=== PATIENT | female | born 1995 | race Caucasian/White ===

== ENCOUNTER 2016-09-06 14:00 | Emergency (ER) | payer MEDICAID ==
[2016-09-06] MEDS ORDERED: Sodium Chloride 0.9% 10 ML Syringe FLUSH PRN (14:12)
[2016-09-06] MEDS ORDERED: Ondansetron 4 MG/2 ML SDV IVPUSH ONE (14:17)
[2016-09-06] MEDS ORDERED: Morphine 4 MG/ML Syringe IVPUSH ONE ×2 (14:17→15:38)
[2016-09-06] MEDS ORDERED: Sodium Chloride 0.9% 1,000 ML IV ONE (14:17)
[2016-09-06] MEDS ORDERED: Ketorolac 30 MG/ML SDV IVPUSH ONE (14:18)
[2016-09-06] MEDS ORDERED: Iopamidol 612 MG/ML 100 ML Bottle IVPUSH ONE (14:21)
[2016-09-06] MEDS ORDERED: Sodium Chloride 0.9% 100 ML IV ONE (14:21)
[2016-09-06 15:09] LABS: CHLORIDE,CL 107 mmol/L (98-107); SODIUM,NA 142 mmol/L (136-145)
[2016-09-06 15:42] VITALS: BP 123/87
[2016-09-06] MEDS ORDERED: Ampicillin/Sulbactam Na 3 GM in Sodium Chloride 0.9% 100 ML IV ONE (16:44)
[2016-09-06] MEDS ORDERED: HYDROmorphone 1 MG/ML Syringe IVPUSH ONE (16:56)
--- NOTE | 2016-09-09 08:23 | ER ---
Date of Service: 09/06/2016 SUBJECTIVE: Joy presents to the emergency room with complaints of periumbilical abdominal pain that started approximately 4 days ago. The patient states that the discomfort has been gradual in onset. She states that she has also been experiencing some fever and chills. Denies any nausea, vomiting, or diarrhea. She states that she does have a history of ovarian cysts in the past. She states that she is currently taking on Depo-Provera injections. She states that she is currently not sexually active and denies any vaginal discharge or bleeding. PAST MEDICAL HISTORY: Fibromyalgia. MEDICATIONS: 1. Lyrica. 2. Lopressor. 3. Depo-Provera. ALLERGIES: NKDA. REVIEW OF SYSTEMS: General: Positive for fever and chills. HEENT: No sore throat, rhinorrhea, or congestion. Respiratory: No shortness of breath. Cardiac: Denies any substernal chest pain. No jaw, arm, neck, or back pain. Gastrointestinal: Please see history of present illness. Genitourinary: Denies any dysuria. No melena, hematochezia, or hematemesis. Neurologic: No fainting, blackouts, or lightheadedness. Musculoskeletal: No myalgias or arthralgias. PHYSICAL EXAMINATION: General: This is a 20-year-old female patient, in no acute distress. Vital Signs: Blood pressure is 125/87, respiratory rate is 20, and temperature is 36.7. Skin: Warm, pink, and dry. HEENT: Mouth, oral mucosa is moist. Lungs: Clear to auscultation. Heart: Regular rate and rhythm. Abdomen: Soft, diffusely tender but localizes around periumbilically. There are no masses noted. There is no hepatosplenomegaly noted. She does have guarding present as well. Genitourinary: Deferred. Rectal: Deferred. Extremities: Without edema. Neurologic: She is alert and oriented and answers all questions appropriately. The patient's speech is fluent. Her gait is within normal limits. LABORATORY DATA: WBCs 16.2, hemoglobin is 10.4, and platelets are 278. She had 82% neutrophils, 3% bands, and did have a slight toxic granulation. Coags; PT is 11.6, INR is 1.0. Chemistry; sodium 142, potassium is 3.8, chloride is 107, bicarb is 25, BUN is 10, creatinine 0.8. GFR is greater than 60. Glucose is 80, lactic acid is 1.1, calcium is 8.5, corrected calcium is 9.54. Total bilirubin is 0.6, AST is 20, ALT is 25, alkaline phosphatase is 127, C-reactive protein is 33.9, total protein is 6.2, albumin is 2.7. Urinalysis reveals specific gravity of less than 1.005. This is after approximately a liter of normal saline, pH was 6.0, negative for protein, glucose, ketones, occult blood, nitrites, and leukocyte esterase. CT scan of the patient's abdomen and pelvis with IV contrast was obtained. She did have evidence of free fluid in her abdomen and pelvis of unknown etiology. Her appendix was within normal limits. She had no evidence of diverticulitis or other obvious inflammatory changes. EMERGENCY ROOM COURSE: IV access was established. She was given a liter of normal saline. Her pain was treated initially with morphine and Toradol and then eventually with Dilaudid. She was also given Zofran 4 mg IV for nausea and vomiting. Blood cultures x2 were obtained and were pending. She was also given Unasyn 3 g IV and remained stable in my care in the emergency room. ASSESSMENT: Abdominal pain secondary to free fluid in abdomen of unknown etiology. PLAN: I did contact [facility] regarding this patient. She will be transferred to be evaluated by General Surgery. I spoke with Dr. Goodwin who accepts the patient in transfer. The patient will be transported by [facility] ground ambulance. All questions were answered. MWK: 09/06/2016 18:25:00 MODL: 09/06/2016 18:47:47 /[id number]
== END 2016-09-06 17:25 | disposition short-term general hospital (02) ==
LOC: VM.ED 14:00
DX: R18.8 Other ascites (principal)
CPT/HCPCS: 36415; 74177; 80053; 81001; 81025; 83605; 85025; 85610; 86140; 87040; 87077; 87186; 96365; 96366; 96367; 96375; 96376; 99285; J0295; J1170; J1885; J2270; J2405; J7030; J7050; Q9967; 87147

== ENCOUNTER 2016-09-19 12:49 | Inpatient (IN) | payer MEDICAID ==
[2016-09-19] MEDS ORDERED: OXYCODONE 10 MG PO PRN (13:12)
[2016-09-19] MEDS ORDERED: Ondansetron 4 MG Tab.DIS PO PRN (13:56)
[2016-09-19] MEDS ORDERED: Ondansetron 4 MG/2 ML SDV IV PRN (13:59)
[2016-09-19] MEDS ORDERED: oxyCODONE 5 MG Tab PO PRN (13:59)
[2016-09-19] MEDS ORDERED: Acetaminophen/Diphenhydramine 500-25 MG Tab PO PRN (13:59)
[2016-09-19] MEDS ORDERED: Heparin Sodium 100 Units/ML 3 ML Syringe IVPUSH SCH (14:00)
[2016-09-19] MEDS ORDERED: SODIUM CHLORIDE IV SCH (14:00)
--- NOTE | 2016-09-19 14:11 | PCM.HP ---
H&P History of Present Illness - General Date of Service: 09/19/16 Admit Problem/Dx: Admission Diagnosis/Problem Admission Diagnosis/Problem Laminectomy Source of Information: Patient, Old Records, Provider - History of Present Illness Initial Comments - Free Text/Narative: History of present illness. Patient was a mid to swing bed today in order to complete total of at least six weeks IV vancomycin high-dose for injury of large spinal abscess status post laminectomy. Approximately two weeks ago on 519 she presented with fever and abdominal and back pain. She is found of leukocytosis. CT concerning for appendicitis. Went to the OR where laparoscopy showed normal appendix. She had appendectomy performed. Her blood cultures grew staph aureus, MRSA. Because of this they did further imaging for source of septicemia. BASIL was negative for any vegetations or endocarditis. MRI showed large spinal abscess from approximately T8 to L3 which subsequently was drained. She has wound VAC in place still having mild to moderate help. Mild pain here. 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 Exact etiology of blood poisoning is not clear. She denies doing IV drug use but the people she was around apparently had been doing this to women against her will. She does admit to smoking methamphetamine for about four months earlier this year. Known chronic marijuana use. Denies alcohol or cigarette use. They recommended inpatient chemical dependency eval in [place] which she refused. Family history positive for chemical dependency and chronic pain syndrome in mother. Social history otherwise patient is not . 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 She returned here to [place] after she broke up with her boyfriend in [place]. Review of systems: Denies headache denies neck pain denies chest pain denies shortness of breath she does describe occasional palpitations. She notes and pickers-type nodules to her skin denies any change in way-type lesions or raw spots. Denies any diarrhea dysuria or vomiting. She is amenorrheic secondary to Depo-Provera. States she's due for her next shot. She is afebrile and her vital signs are normal. Alert oriented occasional twinges of discomfort from her back pain. She has very large open wound with wound VAC here for approximately T8 to L3 area. Surrounding skin is healthy without erythema swelling or drainage. Extremities warm well perfused with normal strength and legs. Heart and lungs clear to auscultation. Assessment and plan. Spinal abscess. Appears to be secondary to methamphetamine use, either IV drug use or smoking this and getting infected skin lesions from picking. We will continue six weeks every 8 hours vancomycin here with monitoring per pharmacy. I think she'll have to stay inpatient for this given frequency and history of substance abuse. She is adamant she won't use meth in the future but discussed her his risk for recurrence. We will get social work consult regarding possible outpatient CD follow-up. We are no work on weaning oxycodone over the next three weeks. Per [place] pain consult guidelines. She is due again for Depo-Provera shot her urine hCG was negative in the hospital. - Related Data Allergies/Adverse Reactions: Allergies Allergy/AdvReac Type Severity Reaction Status Date / Time No Known Drug Allergies Allergy Other Verified 09/06/16 15:29 Home Medications: Home Meds medroxyPROGESTERone Acetate [Depo-Provera] 150 mg IM Q3M 12/31/13 [History] 0.9 % Sodium Chloride [Normal Saline Flush] 10 ml IV Q8H 09/19/16 [History] Acetaminophen [Acetaminophen Extra Strength] 1,000 mg PO TID 09/19/16 [History] Baclofen 10 mg PO QID 09/19/16 [History] Heparin Sodium,Porcine/PF [Heparin 300 Unit/3 ml (100/ml)] 3 ml IV Q8H 09/19/16 [History] Metoprolol Tartrate 25 mg PO BID 09/19/16 [History] Ondansetron [Zofran ODT] 4 mg PO Q4H PRN 09/19/16 [History] Pregabalin [Lyrica] 100 mg PO Q8H 09/19/16 [History] Vancomycin/0.9 % Sod Chloride [Vanco 1.25 gm/250 ml-0.9% NaCl] 1.25 gm IV Q8H [History] oxyCODONE HCl [Oxycodone HCl] 10 mg PO Q4H PRN 09/19/16 [History] Past Medical History Other Genitourinary History: bladder and kidney infections Musculoskeletal History: Reports: Fibromyalgia Other Musculoskeletal History: R foot surgery Psychiatric History: Reports: Anxiety, Depression Social & Family History - Tobacco Use Smoking Status *Q: Current Every Day Smoker Years of Tobacco use: 2 Packs/Tins Daily: 0.5 - Alcohol Use Days Per Week of Alcohol Use: 0 - Recreational Drug Use Recreational Drug Use: No H&P Review of Systems - Review of Systems: Review Of Systems: See Below Exam - Exam Exam: See Below - Vital Signs Vital Signs: Last Vital Signs Temp 36.7 C 09/19/16 13:34 Pulse 92 09/19/16 13:34 Resp 22 H 09/19/16 13:34 BP 129/77 09/19/16 13:34 Pulse Ox 100 09/19/16 13:34 Weight: 67.585 kg *Q Meaningful Use (ADM) - VTE *Q VTE Criteria *Q: - Stroke *Q Stroke Criteria *Q: - AMI *Q AMI Criteria *Q: Problem List Initiated/Reviewed/Updated: Yes Orders Last 24hrs: Active Orders 24 hr Category Date Time Status Patient Status [ADT] Routine ADT 09/19/16 12:49 Active Patient Status [ADT] Routine ADT 09/19/16 13:59 Ordered Ambulate [RC] PER UNIT ROUTINE Care 09/19/16 14:00 Ordered Brace [Immobilizer] [RC] ,20 Care 09/19/16 12:48 Active Central Line Assessment [RC] Care 09/19/16 12:47 Active May Shower [RC] .PRN Care 09/19/16 12:51 Active Oxygen Therapy [RC] PRN Care 09/19/16 13:59 Ordered Up With Assistance [RC] ASDIRECTED Care 09/19/16 13:59 Ordered VTE/DVT Education [RC] PER UNIT ROUTINE Care 09/19/16 13:59 Ordered Vital Signs [RC] Q4H Care 09/19/16 13:59 Ordered Consult to Dietary [Consult to Social Research Assistant] [CONS] Cons 09/19/16 13:35 Active Routine Consult to Mold Yard Crane Operator [CONS] Routine Cons 09/19/16 13:59 Ordered PT Evaluation and Treatment [CONS] Routine Cons 09/19/16 13:59 Ordered Regular Diet [DIET] Diet 09/19/16 Dinner Ordered C-REACTIVE PROTEIN [CHEM] Q7D Lab 09/20/16 07:00 Ordered C-REACTIVE PROTEIN [CHEM] Q7D Lab 09/27/16 07:00 Ordered C-REACTIVE PROTEIN [CHEM] Q7D Lab 10/04/16 07:00 Ordered C-REACTIVE PROTEIN [CHEM] Q7D Lab 10/11/16 07:00 Ordered C-REACTIVE PROTEIN [CHEM] Q7D Lab 10/18/16 07:00 Ordered CBC WITH AUTO DIFF [HEME] Q7D Lab 09/20/16 07:00 Ordered CBC WITH AUTO DIFF [HEME] Q7D Lab 09/27/16 07:00 Ordered CBC WITH AUTO DIFF [HEME] Q7D Lab 10/04/16 07:00 Ordered CBC WITH AUTO DIFF [HEME] Q7D Lab 10/11/16 07:00 Ordered CBC WITH AUTO DIFF [HEME] Q7D Lab 10/18/16 07:00 Ordered CBC WITH AUTO DIFF [HEME] TUFR@07 Lab 09/24/16 07:00 Ordered CREATININE W/GFR [CHEM] TUFR@0700 Lab 09/20/16 07:00 Ordered CREATININE W/GFR [CHEM] TUFR@0700 Lab 09/24/16 07:00 Ordered CREATININE W/GFR [CHEM] TUFR@0700 Lab 09/27/16 07:00 Ordered CREATININE W/GFR [CHEM] TUFR@0700 Lab 10/01/16 07:00 Ordered CREATININE W/GFR [CHEM] TUFR@0700 Lab 10/04/16 07:00 Ordered CREATININE W/GFR [CHEM] TUFR@0700 Lab 10/08/16 07:00 Ordered CREATININE W/GFR [CHEM] TUFR@0700 Lab 10/11/16 07:00 Ordered CREATININE W/GFR [CHEM] TUFR@0700 Lab 10/15/16 07:00 Ordered CREATININE W/GFR [CHEM] TUFR@0700 Lab 10/18/16 07:00 Ordered VANCOMYCIN TROUGH [CHEM] TUFR@0700 Lab 09/20/16 07:00 Ordered VANCOMYCIN TROUGH [CHEM] TUFR@0700 Lab 09/24/16 07:00 Ordered VANCOMYCIN TROUGH [CHEM] TUFR@0700 Lab 09/27/16 07:00 Ordered VANCOMYCIN TROUGH [CHEM] TUFR@0700 Lab 10/01/16 07:00 Ordered VANCOMYCIN TROUGH [CHEM] TUFR@0700 Lab 10/04/16 07:00 Ordered VANCOMYCIN TROUGH [CHEM] TUFR@0700 Lab 10/08/16 07:00 Ordered VANCOMYCIN TROUGH [CHEM] TUFR@0700 Lab 10/11/16 07:00 Ordered VANCOMYCIN TROUGH [CHEM] FR@0700 Lab 10/15/16 07:00 Ordered VANCOMYCIN TROUGH [CHEM] FR@0700 Lab 10/18/16 07:00 Ordered Acetaminophen [Tylenol Extra Strength] Med 09/19/16 20:00 Active 1,000 mg PO TID Acetaminophen [Tylenol] Med 09/19/16 13:59 Ordered 650 mg PO Q4H PRN Baclofen (Own Med) Med 09/19/16 16:00 Active 0 mg PO QID Heparin Sodium [Heparin Lock Flush 100 Units/ML] Med 09/19/16 13:40 Active 300 unit IVPUSH ASDIRECTED PRN Heparin Sodium [Heparin Lock Flush 100 Units/ML] Med 09/19/16 17:30 Active 300 unit IVPUSH Q8H Ibuprofen [Motrin] Med 09/19/16 13:59 Ordered 400 mg PO Q6H PRN Metoprolol Tartrate [Lopressor] Med 09/19/16 20:00 Ordered 25 mg PO BID Ondansetron [Zofran ODT] Med 09/19/16 13:56 Ordered 4 mg PO Q4H PRN Ondansetron [Zofran] Med 09/19/16 13:59 Ordered 4 mg IV Q4H PRN Pregabalin [Lyrica] Med 09/19/16 16:00 Active 0 mg PO Q8H Sodium Chloride 0.9% [Saline Flush] Med 09/19/16 17:30 Active 10 ml FLUSH Q8H Sodium Chloride 0.9% [Saline Flush] Med 09/19/16 13:40 Active 10 ml IV ASDIRECTED PRN Temazepam [Restoril] Med 09/19/16 13:59 Ordered 15 mg PO BEDTIME PRN Vancomycin 1.25 gm Med 09/19/16 16:00 Active Sodium Chloride 0.9% [Normal Saline] 250 ml IV Q8H medroxyPROGESTERone Acetate Med 09/19/16 14:00 Ordered 150 mg IM Q3M oxyCODONE Med 09/19/16 13:59 Ordered 10 mg PO Q4H PRN oxyCODONE HCl [Oxycodone HCl] Med 09/19/16 13:12 Active 0 mg PO Q4H PRN Isolation [COMM] Routine Oth 09/19/16 12:51 Ordered Wound Vac Management [OM.PC] Routine Oth 09/20/16 10:00 Ordered Resuscitation Status Routine Resus Stat 09/19/16 13:59 Ordered Medication Orders Acetaminophen (Tylenol Extra Strength) 1,000 mg PO TID [facility] Heparin Sodium (Porcine) (Heparin Lock Flush 100 Units/Ml) 300 unit IVPUSH Q8H [facility] Heparin Sodium (Porcine) (Heparin Lock Flush 100 Units/Ml) 300 unit IVPUSH ASDIRECTED PRN PRN Reason: Keep Vein Open Vancomycin HCl 1.25 gm/ Sodium (Chloride) 250 mls @ 200 mls/hr IV Q8H [facility] Metoprolol Tartrate (Lopressor) 25 mg PO BID [facility] Pregabalin [Lyrica] (100 Mg (Own Supply)) 0 mg PO Q8H [facility] Oxycodone 10mg (Own (Supply)) 0 mg PO Q4H PRN PRN Reason: Pain (moderate 4-6) Baclofen 10mg (Own (Supply)) 0 mg PO QID [facility] Non-Formulary Medication (Medroxyprogesterone Acetate) 150 mg IM Q3M [facility] Ondansetron HCl (Zofran Odt) 4 mg PO Q4H PRN PRN Reason: Nausea Sodium Chloride (Saline Flush) 10 ml FLUSH Q8H [facility] Sodium Chloride (Saline Flush) 10 ml IV ASDIRECTED PRN PRN Reason: Keep Vein Open
[2016-09-19] MEDS: Acetaminophen 500 MG Tab PO SCH ×2 (14:29→19:57)
[2016-09-19] MEDS: OXYCODONE 5 MG PO PRN ×2 (15:45→19:57)
[2016-09-19] MEDS: PREGABALIN 100 MG PO SCH (15:47)
[2016-09-19] MEDS: BACLOFEN 10 MG PO SCH ×2 (15:47→19:56)
[2016-09-19] MEDS ORDERED: Baclofen 10 MG Tab PO SCH (16:00)
[2016-09-19] MEDS: Sodium Chloride 0.9% 10 ML Syringe FLUSH SCH (17:26)
[2016-09-19] MEDS: Heparin Sodium 100 Units/ML 3 ML Syringe IVPUSH SCH (17:27)
[2016-09-19] MEDS: METOPROLOL 25 MG PO SCH (19:56)
[2016-09-19] MEDS ORDERED: Metoprolol Tartrate 25 MG Tab PO SCH (20:00)
[2016-09-20] MEDS: PREGABALIN 100 MG PO SCH ×3 (00:08→16:09)
[2016-09-20] MEDS: OXYCODONE 5 MG PO PRN ×6 (00:09→20:30)
[2016-09-20] MEDS: Sodium Chloride 0.9% 10 ML Syringe FLUSH SCH ×4 (00:12→17:50)
[2016-09-20] MEDS ORDERED: Sodium Chloride 0.9% 100 ML IV SCH (00:15)
[2016-09-20] MEDS: Heparin Sodium 100 Units/ML 3 ML Syringe IVPUSH SCH ×3 (00:31→17:49)
[2016-09-20] MEDS: Acetaminophen 325 MG Tab PO PRN ×2 (04:15→10:47)
[2016-09-20] MEDS: Acetaminophen 500 MG Tab PO SCH ×3 (08:07→20:29)
[2016-09-20] MEDS: METOPROLOL 25 MG PO SCH ×2 (08:09→20:31)
[2016-09-20] MEDS: BACLOFEN 10 MG PO SCH ×4 (08:09→20:31)
[2016-09-20] MEDS ORDERED: MEDROXYPROGESTERONE ACETATE 150 MG IM SCH (12:00)
[2016-09-20] MEDS ORDERED: Sodium Chloride 0.9% 250 ML IV PRN (15:00)
[2016-09-21] MEDS: Heparin Sodium 100 Units/ML 3 ML Syringe IVPUSH PRN (00:10)
[2016-09-21] MEDS: Sodium Chloride 0.9% 10 ML Syringe FLUSH SCH ×4 (00:10→18:54)
[2016-09-21] MEDS: OXYCODONE 5 MG PO PRN ×6 (00:10→21:07)
[2016-09-21] MEDS: PREGABALIN 100 MG PO SCH ×3 (00:10→16:52)
[2016-09-21] MEDS: Heparin Sodium 100 Units/ML 3 ML Syringe IVPUSH SCH ×3 (00:38→18:54)
[2016-09-21] MEDS: METOPROLOL 25 MG PO SCH ×2 (08:20→21:08)
[2016-09-21] MEDS: BACLOFEN 10 MG PO SCH ×4 (08:20→21:08)
[2016-09-21] MEDS: Acetaminophen 500 MG Tab PO SCH ×3 (08:22→21:08)
[2016-09-22] MEDS: Sodium Chloride 0.9% 10 ML Syringe IV PRN (00:13)
[2016-09-22] MEDS: PREGABALIN 100 MG PO SCH ×3 (00:14→16:15)
[2016-09-22] MEDS: Sodium Chloride 0.9% 10 ML Syringe FLUSH SCH ×3 (01:42→17:35)
[2016-09-22] MEDS: Heparin Sodium 100 Units/ML 3 ML Syringe IVPUSH SCH ×4 (01:42→17:35)
[2016-09-22] MEDS: OXYCODONE 5 MG PO PRN ×6 (01:49→21:34)
[2016-09-22] MEDS: Acetaminophen 500 MG Tab PO SCH ×3 (08:26→20:45)
[2016-09-22] MEDS: BACLOFEN 10 MG PO SCH ×4 (08:27→20:45)
[2016-09-22] MEDS: METOPROLOL 25 MG PO SCH ×2 (08:27→20:45)
--- NOTE | 2016-09-22 10:58 | PN ---
Progress Note for CONCHIS GALAN Date: 09/22/2016 Room #: VM.209 SUBJECTIVE: A 20-year-old white female, on swing bed for IV vancomycin that is being administered through a PICC line. She was admitted on 09/19/2016. She has MRSA infection from a large spinal abscess. On her left wrist, just over the distal radius, she has noticed a swollen and tender area that feels warm to her. This was the site of a prior IV when she was in [place]. The IV was removed on , when her PICC line was inserted, and then she was transferred to [place] [facility]ing Bed. She notes that this area is painful. She is worried about whether it is a clot or infection. OBJECTIVE: General: She is alert. Vital Signs: She is afebrile. Her vital signs are stable. Musculoskeletal: Over the left distal radius, there is a fusiform, swollen, and mildly tender area, feels little bit warm to the touch, but is not reddened. There is full range of motion of the hand and wrist. The extremity is neurovascularly intact. ASSESSMENT: Suspect vein irritation and/or hematoma from prior IV site. PLAN: The patient is reassured. Recommend moist heat several times a day to the area and dressed. She has Tylenol and oxycodone ordered for pain management. Nurses to monitor area. FM: 09/22/2016 10:04:20 MODL: 09/22/2016 10:52:03 /[id number]
[2016-09-22] MEDS ORDERED: Vancomycin 1 GM SDV ONE (15:47)
[2016-09-23] MEDS: Sodium Chloride 0.9% 10 ML Syringe IV PRN (00:03)
[2016-09-23] MEDS: Sodium Chloride 0.9% 100 ML IV SCH (00:06)
[2016-09-23] MEDS: PREGABALIN 100 MG PO SCH ×3 (00:08→16:11)
[2016-09-23] MEDS: Sodium Chloride 0.9% 10 ML Syringe FLUSH SCH ×3 (01:29→17:52)
[2016-09-23] MEDS: Heparin Sodium 100 Units/ML 3 ML Syringe IVPUSH SCH ×3 (01:40→17:52)
[2016-09-23] MEDS: OXYCODONE 5 MG PO PRN ×5 (05:40→22:12)
[2016-09-23] MEDS: BACLOFEN 10 MG PO SCH ×4 (07:45→20:39)
[2016-09-23] MEDS: METOPROLOL 25 MG PO SCH ×2 (07:46→20:38)
[2016-09-23] MEDS: Acetaminophen 500 MG Tab PO SCH ×3 (07:47→20:38)
[2016-09-23] MEDS ORDERED: Vancomycin 1 GM SDV ONE (21:37)
[2016-09-24] MEDS: PREGABALIN 100 MG PO SCH ×4 (00:09→23:41)
[2016-09-24] MEDS: Heparin Sodium 100 Units/ML 3 ML Syringe IVPUSH SCH ×3 (01:34→17:55)
[2016-09-24] MEDS: Sodium Chloride 0.9% 10 ML Syringe FLUSH SCH ×3 (01:35→17:55)
[2016-09-24] MEDS: OXYCODONE 5 MG PO PRN ×4 (03:05→16:16)
[2016-09-24] MEDS: Sodium Chloride 0.9% 100 ML IV SCH ×2 (04:24→23:31)
[2016-09-24] MEDS: Heparin Sodium 100 Units/ML 3 ML Syringe IVPUSH PRN ×2 (05:05→07:38)
[2016-09-24] MEDS: BACLOFEN 10 MG PO SCH ×4 (07:50→19:48)
[2016-09-24] MEDS: METOPROLOL 25 MG PO SCH ×2 (07:51→19:48)
[2016-09-24] MEDS: Acetaminophen 500 MG Tab PO SCH ×3 (07:53→19:49)
--- NOTE | 2016-09-24 09:21 | PCM.SN ---
- Free Text/Narrative Note: Called by Evelia in pharmacy to get a refill of oxycodone. Patient is on swing bed and needs to get prescriptions from the pharmacy rather than using the hospital supply per insurance guidelines. Tapering plan is outlined. Per calculations by pharmacy, she needs 85 tablets to complete this taper. PDMP reviewed. Only refill on 09/[address] Chico Pritchard. Rx sent to [facility] as per pharmacy request.
[2016-09-25] MEDS: Sodium Chloride 0.9% 10 ML Syringe FLUSH SCH ×3 (01:38→17:31)
[2016-09-25] MEDS: Heparin Sodium 100 Units/ML 3 ML Syringe IVPUSH SCH ×3 (01:38→17:31)
[2016-09-25] MEDS: OXYCODONE 5 MG PO PRN ×4 (05:24→18:37)
[2016-09-25] MEDS: BACLOFEN 10 MG PO SCH ×4 (08:15→19:45)
[2016-09-25] MEDS: METOPROLOL 25 MG PO SCH ×2 (08:16→19:46)
[2016-09-25] MEDS: Acetaminophen 500 MG Tab PO SCH ×3 (08:17→19:44)
[2016-09-25] MEDS: PREGABALIN 100 MG PO SCH ×2 (08:17→15:52)
[2016-09-25] MEDS: Sodium Chloride 0.9% 10 ML Syringe IV PRN ×2 (08:20→15:54)
[2016-09-26] MEDS: Sodium Chloride 0.9% 100 ML IV SCH ×2 (00:03→08:02)
[2016-09-26] MEDS: PREGABALIN 100 MG PO SCH ×3 (00:03→15:56)
[2016-09-26] MEDS: Sodium Chloride 0.9% 10 ML Syringe IV PRN (00:04)
[2016-09-26] MEDS: Sodium Chloride 0.9% 10 ML Syringe FLUSH SCH ×3 (01:55→17:39)
[2016-09-26] MEDS: Heparin Sodium 100 Units/ML 3 ML Syringe IVPUSH SCH ×3 (01:55→17:39)
[2016-09-26] MEDS: METOPROLOL 25 MG PO SCH ×2 (07:50→20:10)
[2016-09-26] MEDS: BACLOFEN 10 MG PO SCH ×4 (07:51→20:08)
[2016-09-26] MEDS: Acetaminophen 500 MG Tab PO SCH ×3 (07:54→20:09)
[2016-09-27] MEDS: PREGABALIN 100 MG PO SCH ×3 (00:08→16:30)
[2016-09-27] MEDS: Sodium Chloride 0.9% 10 ML Syringe FLUSH SCH ×3 (01:32→18:05)
[2016-09-27] MEDS: Heparin Sodium 100 Units/ML 3 ML Syringe IVPUSH SCH ×3 (01:34→18:05)
[2016-09-27] MEDS: BACLOFEN 10 MG PO SCH ×4 (08:30→21:25)
[2016-09-27] MEDS: METOPROLOL 25 MG PO SCH ×2 (08:31→21:26)
[2016-09-27] MEDS: Acetaminophen 500 MG Tab PO SCH ×3 (08:40→21:26)
[2016-09-27] MEDS: Ibuprofen 200 MG Tab PO PRN (09:35)
[2016-09-27] MEDS: HYDROmorphone 1 MG/ML Syringe IV PRN (15:30)
[2016-09-27] MEDS: OXYCODONE 5 MG PO PRN (21:28)
[2016-09-28] MEDS: PREGABALIN 100 MG PO SCH ×4 (00:21→23:56)
[2016-09-28] MEDS: Heparin Sodium 100 Units/ML 3 ML Syringe IVPUSH PRN (00:28)
[2016-09-28] MEDS: Sodium Chloride 0.9% 10 ML Syringe FLUSH SCH ×3 (01:36→17:36)
[2016-09-28] MEDS: Heparin Sodium 100 Units/ML 3 ML Syringe IVPUSH SCH ×3 (01:38→17:37)
[2016-09-28] MEDS: BACLOFEN 10 MG PO SCH ×4 (07:56→19:56)
[2016-09-28] MEDS: METOPROLOL 25 MG PO SCH ×2 (07:56→19:57)
[2016-09-28] MEDS: Acetaminophen 500 MG Tab PO SCH ×3 (08:02→19:53)
[2016-09-28] MEDS: Sodium Chloride 0.9% 10 ML Syringe IV PRN (09:26)
[2016-09-28] MEDS: Ibuprofen 200 MG Tab PO PRN ×2 (15:44→21:36)
[2016-09-29] MEDS: Sodium Chloride 0.9% 10 ML Syringe FLUSH SCH ×3 (01:43→18:05)
[2016-09-29] MEDS: Heparin Sodium 100 Units/ML 3 ML Syringe IVPUSH SCH ×3 (01:44→18:05)
[2016-09-29] MEDS: BACLOFEN 10 MG PO SCH ×4 (08:06→19:40)
[2016-09-29] MEDS: METOPROLOL 25 MG PO SCH ×2 (08:06→19:40)
[2016-09-29] MEDS: Acetaminophen 500 MG Tab PO SCH ×3 (08:07→19:41)
[2016-09-29] MEDS: PREGABALIN 100 MG PO SCH ×2 (08:07→16:25)
[2016-09-29] MEDS ORDERED: Magnesium Hydroxide 400 MG/5 ML Susp 30 ML Cup PO PRN (19:57)
[2016-09-29] MEDS ORDERED: Bisacodyl 10 MG Supp RECTAL PRN (19:58)
[2016-09-29] MEDS: Docusate Sodium 100 MG Cap PO SCH (20:40)
[2016-09-29] MEDS: Sodium Chloride 0.9% 100 ML IV SCH (23:58)
[2016-09-30] MEDS: PREGABALIN 100 MG PO SCH ×3 (00:01→16:21)
[2016-09-30] MEDS: Sodium Chloride 0.9% 10 ML Syringe FLUSH SCH ×3 (01:32→18:08)
[2016-09-30] MEDS: Heparin Sodium 100 Units/ML 3 ML Syringe IVPUSH SCH ×3 (01:33→18:09)
[2016-09-30] MEDS: BACLOFEN 10 MG PO SCH ×4 (08:44→20:51)
[2016-09-30] MEDS: METOPROLOL 25 MG PO SCH ×2 (08:45→20:52)
[2016-09-30] MEDS: Docusate Sodium 100 MG Cap PO SCH ×2 (08:45→20:50)
[2016-09-30] MEDS: Sodium Chloride 0.9% 100 ML IV SCH (08:46)
[2016-09-30] MEDS: Acetaminophen 500 MG Tab PO SCH ×3 (08:48→20:52)
[2016-10-01] MEDS: Sodium Chloride 0.9% 100 ML IV SCH (00:01)
[2016-10-01] MEDS: PREGABALIN 100 MG PO SCH ×3 (00:56→16:06)
[2016-10-01] MEDS: Sodium Chloride 0.9% 10 ML Syringe FLUSH SCH ×3 (01:40→17:45)
[2016-10-01] MEDS: Heparin Sodium 100 Units/ML 3 ML Syringe IVPUSH SCH ×3 (01:41→17:45)
[2016-10-01] MEDS: Acetaminophen 500 MG Tab PO SCH ×3 (08:53→19:51)
[2016-10-01] MEDS: Docusate Sodium 100 MG Cap PO SCH ×2 (08:54→19:51)
[2016-10-01] MEDS: BACLOFEN 10 MG PO SCH ×4 (08:54→19:54)
[2016-10-01] MEDS: METOPROLOL 25 MG PO SCH ×2 (08:55→19:55)
[2016-10-01] MEDS: Sodium Chloride 0.9% 10 ML Syringe IV PRN (08:55)
[2016-10-01] MEDS: HYDROmorphone 1 MG/ML Syringe IV PRN (14:27)
[2016-10-01] MEDS: Cyclobenzaprine 10 MG Tab PO PRN (17:47)
[2016-10-02] MEDS: PREGABALIN 100 MG PO SCH ×3 (00:13→16:06)
[2016-10-02] MEDS: Sodium Chloride 0.9% 10 ML Syringe FLUSH SCH ×3 (01:41→17:40)
[2016-10-02] MEDS: Heparin Sodium 100 Units/ML 3 ML Syringe IVPUSH SCH ×3 (01:42→17:41)
[2016-10-02] MEDS ORDERED: Vancomycin 1 GM SDV ONE (07:41)
[2016-10-02] MEDS: Acetaminophen 500 MG Tab PO SCH ×3 (08:13→20:25)
[2016-10-02] MEDS: Sodium Chloride 0.9% 100 ML IV SCH (08:13)
[2016-10-02] MEDS: Docusate Sodium 100 MG Cap PO SCH ×2 (08:16→20:25)
[2016-10-02] MEDS: METOPROLOL 25 MG PO SCH ×2 (08:17→20:29)
[2016-10-02] MEDS: BACLOFEN 10 MG PO SCH ×4 (08:18→20:28)
[2016-10-02] MEDS: Cyclobenzaprine 10 MG Tab PO PRN (16:08)
[2016-10-03] MEDS: PREGABALIN 100 MG PO SCH ×3 (00:07→16:22)
[2016-10-03] MEDS: Sodium Chloride 0.9% 10 ML Syringe FLUSH SCH ×3 (01:31→17:51)
[2016-10-03] MEDS: Heparin Sodium 100 Units/ML 3 ML Syringe IVPUSH SCH ×3 (01:33→17:51)
[2016-10-03] MEDS: Docusate Sodium 100 MG Cap PO SCH ×2 (08:26→22:46)
[2016-10-03] MEDS: Acetaminophen 500 MG Tab PO SCH ×3 (08:26→22:47)
[2016-10-03] MEDS: METOPROLOL 25 MG PO SCH ×2 (08:27→22:49)
[2016-10-03] MEDS: BACLOFEN 10 MG PO SCH ×4 (08:28→22:47)
[2016-10-03] MEDS: Cyclobenzaprine 10 MG Tab PO PRN ×3 (08:31→22:46)
[2016-10-03] MEDS ORDERED: VANCOMYCIN IV SCH (10:59)
[2016-10-03] MEDS ORDERED: SODIUM CHLORIDE 0.9% IV SCH (10:59)
[2016-10-03] MEDS: VANCOMYCIN IV SCH (16:21)
[2016-10-03] MEDS: SODIUM CHLORIDE 0.9% IV SCH (16:21)
[2016-10-04] MEDS: PREGABALIN 100 MG PO SCH ×3 (00:40→15:53)
[2016-10-04] MEDS: SODIUM CHLORIDE 0.9% IV SCH ×3 (00:41→15:51)
[2016-10-04] MEDS: Sodium Chloride 0.9% 10 ML Syringe FLUSH SCH ×3 (00:41→17:26)
[2016-10-04] MEDS: Heparin Sodium 100 Units/ML 3 ML Syringe IVPUSH SCH ×3 (00:41→17:26)
[2016-10-04] MEDS: VANCOMYCIN IV SCH ×3 (00:41→15:51)
[2016-10-04] MEDS: BACLOFEN 10 MG PO SCH ×4 (07:32→21:18)
[2016-10-04] MEDS: METOPROLOL 25 MG PO SCH ×2 (07:33→21:19)
[2016-10-04] MEDS: Acetaminophen 500 MG Tab PO SCH ×3 (07:34→21:19)
[2016-10-04] MEDS: Heparin Sodium 100 Units/ML 3 ML Syringe IVPUSH PRN (07:35)
[2016-10-04] MEDS: Docusate Sodium 100 MG Cap PO SCH ×2 (07:36→21:19)
[2016-10-04] MEDS: Cyclobenzaprine 10 MG Tab PO PRN ×2 (07:37→21:18)
[2016-10-04] MEDS: Sodium Chloride 0.9% 10 ML Syringe IV PRN (15:51)
[2016-10-04] MEDS: HYDROmorphone 1 MG/ML Syringe IV PRN (16:32)
[2016-10-05] MEDS: VANCOMYCIN IV SCH ×4 (00:06→23:58)
[2016-10-05] MEDS: PREGABALIN 100 MG PO SCH ×4 (00:06→23:57)
[2016-10-05] MEDS: SODIUM CHLORIDE 0.9% IV SCH ×4 (00:06→23:58)
[2016-10-05] MEDS: Sodium Chloride 0.9% 10 ML Syringe FLUSH SCH ×3 (01:31→17:42)
[2016-10-05] MEDS: Heparin Sodium 100 Units/ML 3 ML Syringe IVPUSH SCH ×3 (01:32→17:42)
[2016-10-05] MEDS: METOPROLOL 25 MG PO SCH ×2 (08:17→20:53)
[2016-10-05] MEDS: BACLOFEN 10 MG PO SCH ×4 (08:17→20:53)
[2016-10-05] MEDS: Docusate Sodium 100 MG Cap PO SCH ×2 (08:17→20:52)
[2016-10-05] MEDS: Sodium Chloride 0.9% 10 ML Syringe IV PRN ×2 (08:18→16:10)
[2016-10-05] MEDS: Acetaminophen 500 MG Tab PO SCH ×3 (08:18→20:52)
[2016-10-05] MEDS: Cyclobenzaprine 10 MG Tab PO PRN ×2 (17:47→20:52)
[2016-10-06] MEDS: Heparin Sodium 100 Units/ML 3 ML Syringe IVPUSH SCH ×3 (01:21→17:44)
[2016-10-06] MEDS: Sodium Chloride 0.9% 10 ML Syringe FLUSH SCH ×3 (01:21→17:43)
[2016-10-06] MEDS: Acetaminophen 500 MG Tab PO SCH ×3 (07:59→20:47)
[2016-10-06] MEDS: Docusate Sodium 100 MG Cap PO SCH ×2 (08:00→20:47)
[2016-10-06] MEDS: BACLOFEN 10 MG PO SCH ×4 (08:00→20:49)
[2016-10-06] MEDS: METOPROLOL 25 MG PO SCH ×2 (08:01→20:49)
[2016-10-06] MEDS: VANCOMYCIN IV SCH ×2 (08:01→16:10)
[2016-10-06] MEDS: SODIUM CHLORIDE 0.9% IV SCH ×2 (08:01→16:10)
[2016-10-06] MEDS: PREGABALIN 100 MG PO SCH ×2 (08:01→16:07)
[2016-10-06] MEDS: Sodium Chloride 0.9% 10 ML Syringe IV PRN (08:02)
--- NOTE | 2016-10-06 09:19 | PCM.SN ---
- Free Text/Narrative Note: Contacted by nursing regarding patient's UDS results. She is not on any TCA. On reviewing what else could make this positive, flexeril is on the list. This is a new medication this week. Although she had a negative UDS after 2 doses, it looks like it takes a few doses and a few days before it would turn positive. At this point, this is the most plausible explanation. She will continue to have urine drug screens as felt necessary by nursing staff.
[2016-10-06] MEDS: Cyclobenzaprine 10 MG Tab PO PRN (19:21)
[2016-10-07] MEDS: PREGABALIN 100 MG PO SCH ×3 (00:04→16:03)
[2016-10-07] MEDS: SODIUM CHLORIDE 0.9% IV SCH ×3 (00:04→16:03)
[2016-10-07] MEDS: VANCOMYCIN IV SCH ×3 (00:04→16:03)
[2016-10-07] MEDS: Cyclobenzaprine 10 MG Tab PO PRN ×3 (00:11→20:58)
[2016-10-07] MEDS: Heparin Sodium 100 Units/ML 3 ML Syringe IVPUSH SCH ×3 (01:25→17:33)
[2016-10-07] MEDS: Sodium Chloride 0.9% 10 ML Syringe FLUSH SCH ×3 (01:26→17:33)
[2016-10-07] MEDS: Docusate Sodium 100 MG Cap PO SCH ×2 (08:24→20:53)
[2016-10-07] MEDS: Acetaminophen 500 MG Tab PO SCH ×3 (08:25→20:55)
[2016-10-07] MEDS: METOPROLOL 25 MG PO SCH ×2 (08:27→20:54)
[2016-10-07] MEDS: BACLOFEN 10 MG PO SCH ×4 (08:27→20:52)
[2016-10-08] MEDS: SODIUM CHLORIDE 0.9% IV SCH ×4 (01:01→23:23)
[2016-10-08] MEDS: VANCOMYCIN IV SCH ×4 (01:01→23:23)
[2016-10-08] MEDS: PREGABALIN 100 MG PO SCH ×4 (01:03→23:11)
[2016-10-08] MEDS: Heparin Sodium 100 Units/ML 3 ML Syringe IVPUSH SCH ×3 (02:32→17:07)
[2016-10-08] MEDS: Sodium Chloride 0.9% 10 ML Syringe IV PRN (02:33)
[2016-10-08] MEDS: Sodium Chloride 0.9% 10 ML Syringe FLUSH SCH ×3 (06:45→17:07)
[2016-10-08] MEDS: Docusate Sodium 100 MG Cap PO SCH ×2 (08:22→23:10)
[2016-10-08] MEDS: Acetaminophen 500 MG Tab PO SCH ×3 (08:22→23:07)
[2016-10-08] MEDS: METOPROLOL 25 MG PO SCH ×2 (08:23→23:09)
[2016-10-08] MEDS: BACLOFEN 10 MG PO SCH ×4 (08:24→23:06)
[2016-10-08] MEDS: Sodium Chloride 0.9% 100 ML IV SCH (09:13)
[2016-10-08] MEDS: HYDROmorphone 1 MG/ML Syringe IV PRN (13:11)
[2016-10-08] MEDS: Cyclobenzaprine 10 MG Tab PO PRN ×2 (15:40→23:07)
[2016-10-08] MEDS: OXYCODONE 5 MG PO PRN (17:34)
[2016-10-09] MEDS: Sodium Chloride 0.9% 10 ML Syringe FLUSH SCH ×3 (00:56→17:34)
[2016-10-09] MEDS: Heparin Sodium 100 Units/ML 3 ML Syringe IVPUSH SCH ×3 (00:56→17:34)
[2016-10-09] MEDS: SODIUM CHLORIDE 0.9% IV SCH ×3 (08:13→23:49)
[2016-10-09] MEDS: VANCOMYCIN IV SCH ×3 (08:13→23:49)
[2016-10-09] MEDS: Sodium Chloride 0.9% 10 ML Syringe IV PRN (08:14)
[2016-10-09] MEDS: METOPROLOL 25 MG PO SCH ×2 (08:15→22:29)
[2016-10-09] MEDS: Acetaminophen 500 MG Tab PO SCH ×3 (08:15→22:27)
[2016-10-09] MEDS: Docusate Sodium 100 MG Cap PO SCH ×2 (08:15→22:27)
[2016-10-09] MEDS: PREGABALIN 100 MG PO SCH ×3 (08:16→23:41)
[2016-10-09] MEDS: BACLOFEN 10 MG PO SCH ×4 (08:16→22:29)
[2016-10-09] MEDS: OXYCODONE 5 MG PO PRN ×3 (09:05→17:05)
[2016-10-09] MEDS: Cyclobenzaprine 10 MG Tab PO PRN (22:29)
[2016-10-10] MEDS: hydrOXYzine HCl 25 MG Tab PO PRN ×2 (00:19→21:36)
[2016-10-10] MEDS: OXYCODONE 5 MG PO PRN ×3 (00:19→16:38)
[2016-10-10] MEDS: Heparin Sodium 100 Units/ML 3 ML Syringe IVPUSH SCH ×3 (01:14→17:42)
[2016-10-10] MEDS: Sodium Chloride 0.9% 10 ML Syringe FLUSH SCH ×3 (01:15→17:41)
[2016-10-10] MEDS: Docusate Sodium 100 MG Cap PO SCH ×2 (07:53→21:33)
[2016-10-10] MEDS: Acetaminophen 500 MG Tab PO SCH ×3 (07:53→21:31)
[2016-10-10] MEDS: VANCOMYCIN IV SCH ×3 (08:00→23:22)
[2016-10-10] MEDS: BACLOFEN 10 MG PO SCH ×4 (08:00→21:32)
[2016-10-10] MEDS: SODIUM CHLORIDE 0.9% IV SCH ×3 (08:00→23:22)
[2016-10-10] MEDS: METOPROLOL 25 MG PO SCH ×2 (08:01→21:32)
[2016-10-10] MEDS: Cyclobenzaprine 10 MG Tab PO PRN ×2 (08:05→21:35)
[2016-10-10] MEDS: PREGABALIN 100 MG PO SCH (08:06)
[2016-10-10] MEDS: CLINDAMYCIN TOP SCH ×2 (11:57→21:33)
[2016-10-10] MEDS: PREGABALIN 150 MG PO SCH ×2 (16:38→23:26)
[2016-10-11] MEDS: Heparin Sodium 100 Units/ML 3 ML Syringe IVPUSH SCH ×3 (00:47→17:01)
[2016-10-11] MEDS: Sodium Chloride 0.9% 10 ML Syringe FLUSH SCH ×3 (00:48→17:00)
[2016-10-11] MEDS: Heparin Sodium 100 Units/ML 3 ML Syringe IVPUSH PRN (07:30)
[2016-10-11] MEDS: Acetaminophen 500 MG Tab PO SCH ×3 (08:52→22:03)
[2016-10-11] MEDS: Docusate Sodium 100 MG Cap PO SCH ×2 (08:52→22:04)
[2016-10-11] MEDS: OXYCODONE 5 MG PO PRN ×3 (08:53→22:06)
[2016-10-11] MEDS: BACLOFEN 10 MG PO SCH ×4 (08:54→22:04)
[2016-10-11] MEDS: METOPROLOL 25 MG PO SCH ×2 (08:55→22:04)
[2016-10-11] MEDS: PREGABALIN 150 MG PO SCH ×3 (08:56→23:16)
[2016-10-11] MEDS: CLINDAMYCIN TOP SCH ×2 (08:56→22:09)
[2016-10-11] MEDS: SODIUM CHLORIDE 0.9% IV SCH (08:57)
[2016-10-11] MEDS: VANCOMYCIN IV SCH (08:57)
[2016-10-11] MEDS: HYDROmorphone 1 MG/ML Syringe IV PRN (10:00)
[2016-10-11] MEDS: Sodium Chloride 0.9% 10 ML Syringe IV PRN ×2 (11:24→15:23)
[2016-10-11] MEDS: Cyclobenzaprine 10 MG Tab PO PRN (22:08)
[2016-10-12] MEDS: Heparin Sodium 100 Units/ML 3 ML Syringe IVPUSH SCH ×3 (01:01→17:56)
[2016-10-12] MEDS: Sodium Chloride 0.9% 10 ML Syringe FLUSH SCH ×3 (01:01→17:56)
[2016-10-12] MEDS: Acetaminophen 500 MG Tab PO SCH ×3 (08:16→21:06)
[2016-10-12] MEDS: Sodium Chloride 0.9% 10 ML Syringe IV PRN ×2 (08:17→23:19)
[2016-10-12] MEDS: Docusate Sodium 100 MG Cap PO SCH ×2 (08:17→21:10)
[2016-10-12] MEDS: METOPROLOL 25 MG PO SCH ×2 (08:18→21:05)
[2016-10-12] MEDS: BACLOFEN 10 MG PO SCH ×4 (08:18→21:09)
[2016-10-12] MEDS: CLINDAMYCIN TOP SCH ×2 (08:19→21:10)
[2016-10-12] MEDS: PREGABALIN 150 MG PO SCH ×3 (08:19→23:17)
[2016-10-12] MEDS: Cyclobenzaprine 10 MG Tab PO PRN ×2 (08:21→21:07)
[2016-10-12] MEDS: OXYCODONE 5 MG PO PRN ×3 (09:53→21:08)
[2016-10-13] MEDS: Sodium Chloride 0.9% 10 ML Syringe FLUSH SCH ×3 (01:09→17:48)
[2016-10-13] MEDS: Heparin Sodium 100 Units/ML 3 ML Syringe IVPUSH SCH ×3 (01:09→17:49)
[2016-10-13] MEDS: Docusate Sodium 100 MG Cap PO SCH ×2 (08:21→21:40)
[2016-10-13] MEDS: Acetaminophen 500 MG Tab PO SCH ×3 (08:21→21:40)
[2016-10-13] MEDS: BACLOFEN 10 MG PO SCH ×4 (08:22→21:39)
[2016-10-13] MEDS: PREGABALIN 150 MG PO SCH ×2 (08:22→16:12)
[2016-10-13] MEDS: METOPROLOL 25 MG PO SCH ×2 (08:22→21:38)
[2016-10-13] MEDS: OXYCODONE 5 MG PO PRN ×3 (08:23→21:42)
[2016-10-13] MEDS: CLINDAMYCIN TOP SCH ×2 (08:24→21:39)
[2016-10-13] MEDS: Cyclobenzaprine 10 MG Tab PO PRN (21:41)
[2016-10-14] MEDS: Sodium Chloride 0.9% 10 ML Syringe IV PRN (00:03)
[2016-10-14] MEDS: PREGABALIN 150 MG PO SCH ×3 (00:03→16:15)
[2016-10-14] MEDS: Heparin Sodium 100 Units/ML 3 ML Syringe IVPUSH SCH ×3 (01:54→17:58)
[2016-10-14] MEDS: Sodium Chloride 0.9% 10 ML Syringe FLUSH SCH ×3 (02:13→17:57)
[2016-10-14] MEDS: Acetaminophen 500 MG Tab PO SCH ×3 (08:22→20:14)
[2016-10-14] MEDS: METOPROLOL 25 MG PO SCH ×2 (08:23→20:10)
[2016-10-14] MEDS: BACLOFEN 10 MG PO SCH ×4 (08:23→20:08)
[2016-10-14] MEDS: Docusate Sodium 100 MG Cap PO SCH ×2 (08:23→20:14)
[2016-10-14] MEDS: CLINDAMYCIN TOP SCH ×2 (08:24→20:09)
[2016-10-14] MEDS: OXYCODONE 5 MG PO PRN ×3 (08:24→20:13)
[2016-10-14] MEDS: Cyclobenzaprine 10 MG Tab PO PRN (21:05)
[2016-10-15] MEDS: PREGABALIN 150 MG PO SCH ×3 (00:11→16:26)
[2016-10-15] MEDS: Sodium Chloride 0.9% 10 ML Syringe FLUSH SCH ×3 (00:59→18:05)
[2016-10-15] MEDS: Heparin Sodium 100 Units/ML 3 ML Syringe IVPUSH SCH ×3 (00:59→18:05)
[2016-10-15] MEDS ORDERED: Vancomycin 1 GM SDV ONE (07:56)
[2016-10-15] MEDS: CLINDAMYCIN TOP SCH ×2 (08:45→21:53)
[2016-10-15] MEDS: BACLOFEN 10 MG PO SCH ×4 (08:45→21:52)
[2016-10-15] MEDS: METOPROLOL 25 MG PO SCH ×2 (08:45→21:53)
[2016-10-15] MEDS: OXYCODONE 5 MG PO PRN ×3 (08:47→21:54)
[2016-10-15] MEDS: Acetaminophen 500 MG Tab PO SCH ×3 (08:48→21:54)
[2016-10-15] MEDS: Docusate Sodium 100 MG Cap PO SCH ×2 (08:49→21:53)
[2016-10-15] MEDS: HYDROmorphone 1 MG/ML Syringe IV PRN (13:18)
[2016-10-15] MEDS: Cyclobenzaprine 10 MG Tab PO PRN (21:55)
[2016-10-16] MEDS: PREGABALIN 150 MG PO SCH ×3 (00:05→19:34)
[2016-10-16] MEDS: Sodium Chloride 0.9% 10 ML Syringe FLUSH SCH ×3 (01:52→21:19)
[2016-10-16] MEDS: Heparin Sodium 100 Units/ML 3 ML Syringe IVPUSH SCH ×3 (01:53→21:19)
[2016-10-16] MEDS: Acetaminophen 500 MG Tab PO SCH ×3 (08:11→19:35)
[2016-10-16] MEDS: Docusate Sodium 100 MG Cap PO SCH ×2 (08:11→19:34)
[2016-10-16] MEDS: METOPROLOL 25 MG PO SCH ×2 (08:13→19:33)
[2016-10-16] MEDS: BACLOFEN 10 MG PO SCH ×4 (08:14→19:33)
[2016-10-16] MEDS: CLINDAMYCIN TOP SCH ×2 (08:15→19:34)
[2016-10-16] MEDS: OXYCODONE 5 MG PO PRN ×3 (09:59→19:37)
[2016-10-16] MEDS: Cyclobenzaprine 10 MG Tab PO PRN (21:21)
[2016-10-17] MEDS: PREGABALIN 150 MG PO SCH ×4 (01:29→23:09)
[2016-10-17] MEDS: Sodium Chloride 0.9% 10 ML Syringe FLUSH SCH ×3 (03:18→17:54)
[2016-10-17] MEDS: Heparin Sodium 100 Units/ML 3 ML Syringe IVPUSH SCH ×3 (03:18→17:54)
[2016-10-17] MEDS: Acetaminophen 500 MG Tab PO SCH ×3 (08:25→22:16)
[2016-10-17] MEDS: CLINDAMYCIN TOP SCH ×2 (08:26→22:20)
[2016-10-17] MEDS: Docusate Sodium 100 MG Cap PO SCH ×2 (08:26→22:15)
[2016-10-17] MEDS: Cyclobenzaprine 10 MG Tab PO PRN ×2 (08:27→22:16)
[2016-10-17] MEDS: BACLOFEN 10 MG PO SCH ×4 (08:27→22:19)
[2016-10-17] MEDS: METOPROLOL 25 MG PO SCH ×2 (08:28→22:18)
[2016-10-17] MEDS: OXYCODONE 5 MG PO PRN ×3 (11:47→22:17)
[2016-10-17] MEDS: Sodium Chloride 0.9% 100 ML IV SCH (23:10)
[2016-10-18] MEDS: Sodium Chloride 0.9% 10 ML Syringe FLUSH SCH ×4 (00:53→17:44)
[2016-10-18] MEDS: Heparin Sodium 100 Units/ML 3 ML Syringe IVPUSH SCH ×3 (00:53→17:44)
[2016-10-18] MEDS: Heparin Sodium 100 Units/ML 3 ML Syringe IVPUSH PRN (07:33)
[2016-10-18] MEDS: METOPROLOL 25 MG PO SCH ×2 (08:44→22:53)
[2016-10-18] MEDS: BACLOFEN 10 MG PO SCH ×4 (08:44→22:53)
[2016-10-18] MEDS: Docusate Sodium 100 MG Cap PO SCH ×2 (08:45→22:57)
[2016-10-18] MEDS: Acetaminophen 500 MG Tab PO SCH ×3 (08:45→22:57)
[2016-10-18] MEDS: OXYCODONE 5 MG PO PRN ×3 (08:46→17:44)
[2016-10-18] MEDS: PREGABALIN 150 MG PO SCH ×2 (08:49→15:59)
[2016-10-18] MEDS: CLINDAMYCIN TOP SCH ×2 (08:49→22:54)
[2016-10-18] MEDS: Sodium Chloride 0.9% 10 ML Syringe IV PRN (10:57)
[2016-10-18] MEDS: Cyclobenzaprine 10 MG Tab PO PRN (22:59)
[2016-10-19] MEDS: PREGABALIN 150 MG PO SCH ×3 (00:17→16:17)
[2016-10-19] MEDS: OXYCODONE 5 MG PO PRN ×3 (00:17→16:17)
[2016-10-19] MEDS: Heparin Sodium 100 Units/ML 3 ML Syringe IVPUSH SCH ×3 (01:57→17:57)
[2016-10-19] MEDS: Sodium Chloride 0.9% 10 ML Syringe FLUSH SCH ×3 (01:57→17:57)
[2016-10-19] MEDS: Sodium Chloride 0.9% 10 ML Syringe IV PRN ×2 (08:17→16:15)
[2016-10-19] MEDS: BACLOFEN 10 MG PO SCH ×3 (08:18→16:16)
[2016-10-19] MEDS: METOPROLOL 25 MG PO SCH (08:18)
[2016-10-19] MEDS: Acetaminophen 500 MG Tab PO SCH ×2 (08:19→11:35)
[2016-10-19] MEDS: Docusate Sodium 100 MG Cap PO SCH (08:19)
[2016-10-19] MEDS: CLINDAMYCIN TOP SCH ×2 (08:20→20:58)
[2016-10-19] MEDS: Cyclobenzaprine 10 MG Tab PO PRN (17:57)
[2016-10-20] MEDS: PREGABALIN 150 MG PO SCH ×3 (00:11→16:15)
[2016-10-20] MEDS: Sodium Chloride 0.9% 10 ML Syringe IV PRN ×2 (00:11→23:17)
[2016-10-20] MEDS: OXYCODONE 5 MG PO PRN ×3 (00:12→16:18)
[2016-10-20] MEDS: BACLOFEN 10 MG PO SCH ×5 (00:12→21:38)
[2016-10-20] MEDS: Sodium Chloride 0.9% 100 ML IV SCH ×2 (00:12→23:16)
[2016-10-20] MEDS: METOPROLOL 25 MG PO SCH ×3 (00:12→21:39)
[2016-10-20] MEDS: Acetaminophen 500 MG Tab PO SCH ×4 (00:12→21:40)
[2016-10-20] MEDS: Docusate Sodium 100 MG Cap PO SCH ×3 (00:12→21:40)
[2016-10-20] MEDS: Heparin Sodium 100 Units/ML 3 ML Syringe IVPUSH SCH ×3 (01:55→17:54)
[2016-10-20] MEDS: Sodium Chloride 0.9% 10 ML Syringe FLUSH SCH ×3 (02:12→17:54)
[2016-10-20] MEDS: Cyclobenzaprine 10 MG Tab PO PRN ×2 (07:52→21:40)
[2016-10-20] MEDS: CLINDAMYCIN TOP SCH ×2 (10:04→21:40)
[2016-10-21] MEDS: Heparin Sodium 100 Units/ML 3 ML Syringe IVPUSH SCH ×2 (00:54→09:29)
[2016-10-21] MEDS: OXYCODONE 5 MG PO PRN ×2 (00:55→08:15)
[2016-10-21] MEDS: PREGABALIN 150 MG PO SCH ×2 (00:55→08:16)
[2016-10-21] MEDS: Sodium Chloride 0.9% 10 ML Syringe FLUSH SCH ×3 (01:26→09:29)
[2016-10-21] MEDS: Acetaminophen 500 MG Tab PO SCH ×2 (08:16→13:06)
[2016-10-21] MEDS: BACLOFEN 10 MG PO SCH ×2 (08:16→13:06)
[2016-10-21] MEDS: METOPROLOL 25 MG PO SCH (08:17)
[2016-10-21] MEDS: Docusate Sodium 100 MG Cap PO SCH (08:18)
[2016-10-21] MEDS: CLINDAMYCIN TOP SCH (08:18)
[2016-10-21 08:31] VITALS: BP 125/67
--- NOTE | 2016-10-21 21:46 | DISCH ---
PRIMARY DISCHARGE DIAGNOSES: 1. Spinal abscess status post drainage T8 through L3 with wound VAC in place, now weaned down to wet-to-dry dressings twice daily. 2. MRSA bacteremia due to the abscess. BASIL reported to be negative prior to admission. 3. History of methamphetamine abuse, possible cause of her infection. 4. Heart murmur, on metoprolol. 5. Contraception, on Depo-Provera. REASON FOR ADMISSION: On the date of admission, this 20-year-old female, who was admitted to [facility] back in August for fever and leukocytosis was actually taken to the OR and had appendectomy, was actually found to have a large spinal abscess. This was strained and she required wound VAC cares and 8 weeks of vancomycin, which she received in [place] and then well at [facility] and went to her Infectious Disease appointment on 10/21 and the PICC line was removed. She otherwise had been on 10 mg 4 times a day of oxycodone, which was subsequently weaned down to 5 mg 3 times a day while she was here. She feels that it is most important to take some at night to help her with sleep but is open to further weaning. Otherwise, she did have severe pain with wound VAC changes and did require some Dilaudid. Otherwise, she had no fevers while she was here. She had a urine drug screen that was not concerning other than showing some TCAs, but it could have come from her Flexeril. Her Lyrica was also increased to 3 times a day to help with pain and she is tolerating this on discharge. The patient reports taking Lyrica even before this started for her scoliosis related back pain. PHYSICAL EXAMINATION: Vital Signs: On discharge included temperature 99, pulse 90, blood pressure 125/67, respiratory rate 18, O2 saturation of 99% on room air. General: She is in no acute distress. Heart: Regular rate and rhythm with murmur. Lungs: Sounds are clear to auscultation bilaterally without crackles or wheezes. Abdomen: Positive bowel sounds. Soft and nontender. Otherwise back incision is in place. I did not remove it as she had just come from ID appointments today. DISCHARGE INSTRUCTIONS: The patient will follow up on 11/01 at 4 p.m. with Plastic Surgery in [place] and 11/04 at 9:40 a.m. with Infectious Disease. The patient has 23 oxycodone left. We discussed tapering down to twice daily for 7 days, then once daily until she ran out or Dr. Chico Pritchard fills. She will also be on Motrin 600 mg up to 3 times a day with food for pain. I also wrote for chemical dependency treatments to be considered on her discharge as this was offered to her as well in [place]. Otherwise, the patient will be under Home Health. HOME HEALTH ADDENDUM: The patient was seen by me [id number] on 10/21/2016. She will require Home Health mainly for nursing to assess her wound and teach her how to do wet-to-dry dressing, so her significant other is able to help her with that twice daily. She will also need monitoring of the wound for any drainage or further infection. Otherwise, she is homebound due to recent back surgery and ongoing medication adjustments. I anticipate that once she gets home and things stabilize, she will likely be able to travel to outpatient appointments and have dressings changed as well especially if she get decreased to once daily changes. Otherwise, I will periodically monitor this plan of care. Otherwise, it can be monitored by Chico Pritchard. She did have Lyrica refilled recently but will need to see Dr. Chico Pritchard for further refills on that. MKA: 10/21/2016 13:01:50 MODL: 10/21/2016 21:40:25 /[id number] NAN
== END 2016-10-21 13:40 | disposition home health service (06) | DRG 96 ==
LOC: VM.MS 12:49 → UNDOADMIN 12:49 → VM.MS 09-23 15:00
PROVIDERS: ADMIT Family Medicine; ATTEND Family Medicine
PROC: 2W05X6Z Change Pressure Dressing on Back (ICD-10-PCS; principal; 2016-09-20)
DX: G06.1 Intraspinal abscess and granuloma (principal); M79.7 Fibromyalgia; F17.210 Nicotine dependence, cigarettes, uncomplicated; F15.21 Other stimulant dependence, in remission; B95.62 Methicillin resistant Staphylococcus aureus infection as the cause of diseases classified elsewhere; Z98.890 Other specified postprocedural states; R01.1 Cardiac murmur, unspecified; Z79.3 Long term (current) use of hormonal contraceptives
CPT/HCPCS: 36415; 80202; 80299; 80305; 82565; 85025; 86140; 87177; 87209; 97035-GP; 97110-GP; 97116-GP; 97161-GP; A9270-GY; G0480; J1170; J1642; J3370; J7050

== ENCOUNTER 2018-01-21 10:24 | Emergency (ER) | payer MEDICAID | END 2018-01-21 10:30 | disposition home or self-care (01) | LOC: VM.ED 10:24 | DX: Z53.21 Procedure and treatment not carried out due to patient leaving prior to being seen by health care provider (principal) ==

== ENCOUNTER 2020-12-08 19:15 | Emergency (ER) | payer MEDICAID ==
[2020-12-08 19:51] VITALS: BP 134/86; PULSE 102
[2020-12-08] MEDS ORDERED: fentaNYL 100 MCG/2 ML SDV IVPUSH ONE (20:09)
[2020-12-08] MEDS ORDERED: Sodium Chloride 0.9% 1,000 ML IV ONE (20:09)
[2020-12-08] MEDS ORDERED: GI Cocktail Oral Solution 30 ML PO ONE (20:09)
[2020-12-08] MEDS ORDERED: Ondansetron 4 MG/2 ML SDV IVPUSH ONE (20:09)
[2020-12-08] MEDS ORDERED: Sodium Chloride 0.9% 10 ML Syringe FLUSH PRN (20:09)
[2020-12-08 20:27] LABS: BUPRENORPHINE,URINE NEGATIVE (NEGATIVE); METHYLENEDIOXYMETHAMP,UR NEGATIVE (NEGATIVE); PHENCYCLIDINE,URINE NEGATIVE (NEGATIVE)
[2020-12-08 20:29] LABS: MARIJUANA,URINE POSITIVE (NEGATIVE)
[2020-12-08 20:44] LABS: CHLORIDE,CL 103 mmol/L (98-107); SODIUM,NA 139 mmol/L (136-145)
[2020-12-08 20:45] LABS: ANION GAP 14.7 mmol/L (5-15)
--- NOTE | 2020-12-08 22:05 | EDM.PDOC ---
ED HPI GENERAL MEDICAL PROBLEM - General Chief Complaint: Abdominal Pain Stated Complaint: STOMACH PAIN Time Seen by Provider: 12/08/20 20:12 Source of Information: Reports: Patient - History of Present Illness INITIAL COMMENTS - FREE TEXT/NARRATIVE: Joy is a 24 y/o female who presents to the ER with complaints of upper abdominal pain and bloating that started about 0200. She got up and went to wor , but all day was very uncomfortable. SHe reported at times the pain was so sharp and colicky that it felt like labor contractions. Denies fever. Some nausea, but no vomiting. No diarrhea. Did not take any meds. Reports having negative HCG test last week prior to DepoProvera injection. Does not have an appendix, but still has her GB. Upper Abdominal Pain Score (Numeric/FACES): 3 - Related Data Allergies Allergy/AdvReac Type Severity Reaction Status Date / Time No Known Drug Allergies Allergy Other Verified 03/29/17 13:48 Home Meds: Home Meds Cyclobenzaprine [Flexeril] 10 mg PO TID PRN 03/29/17 [History] Past Medical History Cardiovascular History: Reports: Heart Murmur Respiratory History: Reports: None Other Genitourinary History: bladder and kidney infections Musculoskeletal History: Reports: Fibromyalgia Other Musculoskeletal History: R foot surgery Psychiatric History: Reports: Anxiety, Depression Dermatologic History: Reports: Eczema - Infectious Disease History Infectious Disease History: Reports: MRSA - Past Surgical History Cardiovascular Surgical History: Reports: None GI Surgical History: Reports: Appendectomy Musculoskeletal Surgical History: Reports: None Social & Family History - Family History Family Medical History: No Pertinent Family History - Tobacco Use Tobacco Use Status *Q: Never Tobacco User Second Hand Smoke Exposure: No - Caffeine Use Caffeine Use: Reports: Soda - Recreational Drug Use Recreational Drug Use: No Review of Systems - Review of Systems Review Of Systems: See Below Constitutional: Reports: No Symptoms Eyes: Reports: No Symptoms Ears: Reports: No Symptoms Nose: Reports: No Symptoms Mouth/Throat: Reports: No Symptoms Respiratory: Reports: No Symptoms Cardiovascular: Reports: No Symptoms GI/Abdominal: Reports: Abdominal Pain, Nausea. Denies: Diarrhea, Vomiting Genitourinary: Reports: No Symptoms Musculoskeletal: Reports: No Symptoms Skin: Reports: No Symptoms Neurological: Reports: No Symptoms Psychiatric: Reports: No Symptoms ED EXAM, GENERAL - Physical Exam Exam: See Below General Appearance: Alert, WD/WN, Other (Adult female, appears uncomfortable.) Ears: Normal External Exam, Hearing Grossly Normal Nose: Normal Inspection, Normal Mucosa Throat/Mouth: Normal Inspection, Normal Lips, Normal Voice Head: Atraumatic, Normocephalic Neck: Supple Respiratory/Chest: No Respiratory Distress, Lungs Clear, Chest Non-Tender Cardiovascular: Normal Peripheral Pulses, Regular Rate, Rhythm, No Murmur GI/Abdominal: Soft, No Organomegaly, Tender (Upper abdomen, midly in the RLQ), Abnormal Bowel Sounds (hyperactive throughout) (Female) Exam: Deferred Rectal (Female) Exam: Deferred Back Exam: Normal Inspection Extremities: Normal Inspection, Normal Range of Motion Neurological: Alert, Oriented, CN II-XII Intact Psychiatric: Normal Affect, Normal Mood Skin Exam: Warm, Dry, Intact Course - Vital Signs Text/Narrative:: 1929 The patient was seen by the WEB DEVELOPER. Labs ordered. She was initially given a GI cocktail 30ml po since her pain with described as "colicky & bloated", also ordered a liter of NS and Fentanyl 100mcg IVP. 2100 Labs reviewed. CBC neg, CMP neg, CRP=5.0, Amylase=39, Zlyjjd=028, Mg=1.8, UA neg, UDS +THC. Patient feeling better now. CRP elevated and could represent early infectious process. WEB DEVELOPER discussed CT imaging, but patient anxious to go home tonight. Advised if pain persists imaging indicated. She is aware. Also discussed +THC use with patient as cause of abdominal pain, she reports use as 2 weeks ago and 1x, so doubt this as cause. Patient again declined to stay for imaging. Lastly consideration given to PMS type sx or Ovulation pain, pt re cently had DepoProvera updated last week with negative HCG test. Written instructions were given and the patient left the ER in stable condition. Last Recorded V/S: Last Vital Signs Temp 37.0 C 12/08/20 19:25 Pulse 102 H 12/08/20 19:25 Resp 12 12/08/20 19:25 BP 134/86 12/08/20 19:25 Pulse Ox 98 12/08/20 19:25 - Orders/Labs/Meds Orders: Active Orders 24 hr Category Date Time Status Saline Lock Insert [OM.PC] Stat Oth 12/08/20 20:09 Ordered Labs: Laboratory Tests 12/08/20 12/08/20 12/08/20 Range/Units 20:10 20:10 20:23 WBC 5.2 (4.0-10.0) x10^3/uL RBC 4.31 (4.00-5.50) x10^6/uL Hgb 12.8 (12.0-16.0) g/dL Hct 36.9 (33.0-47.0) % MCV 85.6 (78.0-93.0) fL MCH 29.7 (26.0-32.0) pg MCHC 34.7 (32.0-36.0) g/dL RDW Coeff of [place]ets[place] 12.3 (10.0-15.0) % Plt Count 230 (130-400) x10^3/uL Immature Gran % (Auto) 0.00 (0.00-0.43) % Neut % (Auto) 76.3 (50.0-80.0) % Lymph % (Auto) 17.0 L (25.0-50.0) % Carbon % (Auto) 5.7 (2.0-11.0) % Eos % (Auto) 1.0 (0.0-4.0) % Baso % (Auto) 0.0 L (0.2-1.2) % Neut # (Auto) 4.0 (1.8-7.7) x10^3/uL Lymph # (Auto) 0.9 L (1.0-4.8) x10^3/uL Carbon # (Auto) 0.3 (0.0-0.8) x10^3/uL Eos # (Auto) 0.1 (0.0-0.5) x10^3/uL Baso # (Auto) 0.0 (0.0-0.2) x10^3/uL Immature Gran # (Auto) 0.00 (0.00-0.07) x10^3/uL Sodium (136-145) mmol/L Potassium (3.5-5.1) mmol/L Chloride (98-107) mmol/L Carbon Dioxide (21-32) mmol/L Anion Gap (5-15) mmol/L BUN (7-18) mg/dL Creatinine (0.55-1.02) mg/dL Est Cr Clr Drug Dosing mL/min Estimated GFR (MDRD) Glucose (70-99) mg/dL Calcium (8.5-10.1) mg/dL Corrected Calcium (8.5-10.1) mg/dL Magnesium (1.8-2.4) mg/dL Total Bilirubin (0.2-1.0) mg/dL AST (15-37) U/L ALT (14-59) U/L Alkaline Phosphatase (46-116) U/L C-Reactive Protein (<=0.9) mg/dL Total Protein (6.4-8.2) g/dL Albumin (3.4-5.0) g/dL Globulin Albumin/Globulin Ratio Amylase (25-115) U/L Lipase (73-393) U/L Urine Color Yellow (YELLOW) Urine Appearance Clear (CLEAR) Urine pH 6.0 (5.0-8.0) Ur Specific [place] 1.020 Urine Protein Negative (NEGATIVE) mg/dL Urine Glucose (UA) Negative (NEGATIVE) mg/dL Urine Ketones Negative (NEGATIVE) mg/dL Urine Occult Blood Negative (NEGATIVE) Urine Nitrite Negative (NEGATIVE) Urine Bilirubin Negative (NEGATIVE) Urine Urobilinogen 0.2 (0.2) EU/dL Ur Leukocyte Esterase Negative (NEGATIVE) Urine Opiates Screen Negative (NEGATIVE) Ur Buprenorphine Scrn Negative (NEGATIVE) Ur Oxycodone Screen Negative (NEGATIVE) Urine Methadone Screen Negative (NEGATIVE) Ur Barbituates Screen Negative (NEGATIVE) Ur Phencyclidine Scrn Negative (NEGATIVE) Ur Amphetamines Screen Negative (NEGATIVE) U Methamphetamines Scrn Negative (NEGATIVE) Urine MDMA Screen Negative (NEGATIVE) U Benzodiazepines Scrn Negative (NEGATIVE) Urine Cocaine Screen Negative (NEGATIVE) U Marijuana (THC) Screen Positive H (NEGATIVE) 12/08/20 Range/Units 20:23 WBC (4.0-10.0) x10^3/uL RBC (4.00-5.50) x10^6/uL Hgb (12.0-16.0) g/dL Hct (33.0-47.0) % MCV (78.0-93.0) fL MCH (26.0-32.0) pg MCHC (32.0-36.0) g/dL RDW Coeff of Betsy (10.0-15.0) % Plt Count (130-400) x10^3/uL Immature Gran % (Auto) (0.00-0.43) % Neut % (Auto) (50.0-80.0) % Lymph % (Auto) (25.0-50.0) % Carbon % (Auto) (2.0-11.0) % Eos % (Auto) (0.0-4.0) % Baso % (Auto) (0.2-1.2) % Neut # (Auto) (1.8-7.7) x10^3/uL Lymph # (Auto) (1.0-4.8) x10^3/uL Carbon # (Auto) (0.0-0.8) x10^3/uL Eos # (Auto) (0.0-0.5) x10^3/uL Baso # (Auto) (0.0-0.2) x10^3/uL Immature Gran # (Auto) (0.00-0.07) x10^3/uL Sodium 139 (136-145) mmol/L Potassium 3.7 (3.5-5.1) mmol/L Chloride 103 (98-107) mmol/L Carbon Dioxide 25 (21-32) mmol/L Anion Gap 14.7 (5-15) mmol/L BUN 10 (7-18) mg/dL Creatinine 0.6 (0.55-1.02) mg/dL Est Cr Clr Drug Dosing 136.51 mL/min Estimated GFR (MDRD) > 60 Glucose 84 (70-99) mg/dL Calcium 8.4 L (8.5-10.1) mg/dL Corrected Calcium 8.6 (8.5-10.1) mg/dL Magnesium 1.8 (1.8-2.4) mg/dL Total Bilirubin 0.6 (0.2-1.0) mg/dL AST 19 (15-37) U/L ALT 16 (14-59) U/L Alkaline Phosphatase 61 (46-116) U/L C-Reactive Protein 5.0 H (<=0.9) mg/dL Total Protein 6.5 (6.4-8.2) g/dL Albumin 3.8 (3.4-5.0) g/dL Globulin 2.7 Albumin/Globulin Ratio 1.41 Amylase 39 (25-115) U/L Lipase 127 (73-393) U/L Urine Color (YELLOW) Urine Appearance (CLEAR) Urine pH (5.0-8.0) Ur Specific [place] Urine Protein (NEGATIVE) mg/dL Urine Glucose (UA) (NEGATIVE) mg/dL Urine Ketones (NEGATIVE) mg/dL Urine Occult Blood (NEGATIVE) Urine Nitrite (NEGATIVE) Urine Bilirubin (NEGATIVE) Urine Urobilinogen (0.2) EU/dL Ur Leukocyte Esterase (NEGATIVE) Urine Opiates Screen (NEGATIVE) Ur Buprenorphine Scrn (NEGATIVE) Ur Oxycodone Screen (NEGATIVE) Urine Methadone Screen (NEGATIVE) Ur Barbituates Screen (NEGATIVE) Ur Phencyclidine Scrn (NEGATIVE) Ur Amphetamines Screen (NEGATIVE) U Methamphetamines Scrn (NEGATIVE) Urine MDMA Screen (NEGATIVE) U Benzodiazepines Scrn (NEGATIVE) Urine Cocaine Screen (NEGATIVE) U Marijuana (THC) Screen (NEGATIVE) Meds: Medications Discontinued Medications Generic Name Dose Route Start Last Admin Trade Name Freq PRN Reason Stop Dose Admin Al Hydroxide/Mg Hydroxide 30 ml 12/08/20 20:09 12/08/20 20:30 Gi Cocktail Oral Solution 30 Ml PO 12/08/20 20:10 30 ml ONETIME ONE Administration Fentanyl 100 mcg 12/08/20 20:09 12/08/20 20:46 Fentanyl 100 Mcg/2 Ml Sdv IVPUSH 12/08/20 20:10 100 mcg ONETIME ONE Administration Sodium Chloride 1,000 mls @ 999 mls/hr 12/08/20 20:09 12/08/20 20:40 Normal Saline IV 12/08/20 21:09 999 mls/hr ONETIME ONE Administration Ondansetron HCl 4 mg 12/08/20 20:09 12/08/20 20:45 Ondansetron 4 Mg/2 Ml Sdv IVPUSH 12/08/20 20:10 4 mg ONETIME ONE Administration Sodium Chloride 10 ml 12/08/20 20:09 Sodium Chloride 0.9% 10 Ml Syringe FLUSH ASDIRECTED PRN Keep Vein Open Departure - Departure Time of Disposition: 21:45 Disposition: Home, Self-Care 01 Condition: Good Clinical Impression: Abdominal pain Qualifiers: Abdominal location: upper abdomen, unspecified Qualified Code(s): R10.10 - Upper abdominal pain, unspecified - Discharge Information Instructions: Abdominal Pain, Adult, Pain Medicine Instructions, [id number] Referrals: Gaby Lees NP [Primary Care Provider] - Forms: ED Department Discharge Additional Instructions: -Monitor for further symptoms -May use OTC pain meds or antacids tonight -Diet-Eat a light diet with lots of fluids and avoid heavy greasy foods. -Return to the ER if pain worsens or you have any other concerns Sepsis Event Note (ED) - Focused Exam Vital Signs: Vital Signs Temp Pulse Resp BP Pulse Ox 12/08/20 19:25 37.0 C 102 H 12 134/86 98 - My Orders Last 24 Hours: My Active Orders 12/08/20 20:09 Saline Lock Insert [OM.PC] Stat - Assessment/Plan Last 24 Hours: My Active Orders 12/08/20 20:09 Saline Lock Insert [OM.PC] Stat
== END 2020-12-08 22:14 | disposition home or self-care (01) ==
LOC: VM.ED 19:15
DX: R10.10 Upper abdominal pain, unspecified (principal); R10.31 Right lower quadrant pain; Z79.891 Long term (current) use of opiate analgesic
CPT/HCPCS: 36415; 80053; 80305-QW; 81003; 82150; 83690; 83735; 85025; 86140; 96374; 96375; 99284; 99284-25; A9270-GY; J2405; J3010; J7030

== ENCOUNTER 2022-08-20 08:13 | Emergency (ER) | payer MEDICAID ==
[2022-08-20 09:21] VITALS: BP 120/73; PULSE 92
[2022-08-20] MEDS: Pseudoephedrine 30 MG Tab PO SCH (09:48)
== END 2022-08-20 09:48 | disposition home or self-care (01) ==
LOC: VM.ED 08:13
DX: G93.5 Compression of brain (principal); J06.9 Acute upper respiratory infection, unspecified; Z88.5 Allergy status to narcotic agent
CPT/HCPCS: 99283; A9270-GY

== ENCOUNTER 2022-11-11 09:49 | Emergency (ER) | payer MEDICAID ==
[2022-11-11 10:28] VITALS: BP 139/94; PULSE 88
== END 2022-11-11 10:30 | disposition home or self-care (01) ==
LOC: VM.ED 09:49 → SUPCPDRO 09:49 → VM.ED 10:30
DX: K64.9 Unspecified hemorrhoids (principal); Z88.5 Allergy status to narcotic agent
CPT/HCPCS: 99282; 99283

== ENCOUNTER 2023-05-12 10:55 | Emergency (ER) | payer MEDICAID ==
[2023-05-12 11:06] VITALS: BP 135/94; PULSE 98
[2023-05-12] MEDS ORDERED: Ondansetron 4 MG/2 ML SDV IVPUSH ONE (11:10)
[2023-05-12] MEDS ORDERED: Sodium Chloride 0.9% 1,000 ML IV ONE (11:10)
[2023-05-12 11:24] LABS: BASOPHILS PERCENT AUTO 0.2 % (0.2-1.2); EOSINOPHILS ABSOLUTE AUTO 0.1 x10^3/uL (0.0-0.5); HEMATOCRIT 41.8 % (33.0-47.0); HEMOGLOBIN 14.6 g/dL (12.0-16.0); IMMATURE GRAN ABSOLUTE AUTO 0.01 x10^3/uL (0.00-0.07); LYMPHOCYTES ABSOLUTE AUTO 1.3 x10^3/uL (1.0-4.8); LYMPHOCYTES PERCENT AUTO 10.6 % (25.0-50.0); MEAN CORPUSCULAR HEMOGLOBIN 31.9 pg (26.0-32.0); MEAN CORPUSCULAR HGB CONC 34.9 g/dL (32.0-36.0); MEAN CORPUSCULAR VOLUME 91.5 fL (78.0-93.0); MONOCYTES ABSOLUTE AUTO 0.4 x10^3/uL (0.0-0.8); MONOCYTES PERCENT AUTO 3.5 % (2.0-11.0); NEUTROPHILS ABSOLUTE AUTO 10.1 x10^3/uL (1.8-7.7); NEUTROPHILS PERCENT AUTO 84.6 % (50.0-80.0); PLATELET COUNT,PLT 329 x10^3/uL (130-400); RED BLOOD CELL COUNT 4.57 x10^6/uL (4.00-5.50)
[2023-05-12 11:24] LABS: APPEARANCE,URINE SLIGHTLY CLOUDY (CLEAR); BILIRUBIN,URINE MODERATE (NEGATIVE); COLOR,URINE DARK YELLOW (YELLOW); GLUCOSE,URINE NEGATIVE (NEGATIVE); KETONES,URINE TRACE mg/dL (NEGATIVE); LEUKOCYTE ESTERASE,URINE SMALL (NEGATIVE); NITRITE,URINE NEGATIVE (NEGATIVE); OCCULT BLOOD,URINE TRACE-INTACT (NEGATIVE); PH,URINE 5.5 (5.0-8.0); PROTEIN,URINE 30 mg/dL (NEGATIVE); UROBILINOGEN,URINE 0.2 EU/dL (0.2)
[2023-05-12 11:33] LABS: AMORPHOUS SEDIMENT,URINE FEW; BACTERIA,URINE OCCASIONAL /HPF (NOT SEEN); CALCIUM OXALATE CRYSTALS,URINE FEW /HPF (NOT SEEN); MUCUS,URINE FEW /LPF (NOT SEEN); RBC,URINE 0-5 /HPF (NOT SEEN); SQUAMOUS EPITHELIAL CELLS,UR MANY /HPF (NOT SEEN)
[2023-05-12 11:44] LABS: A/G RATIO 1.13; ALANINE AMINOTRANSFERASE,ALT 27 U/L (14-59); ALBUMIN 3.6 g/dL (3.4-5.0); ALKALINE PHOSPHATASE 60 U/L (46-116); ANION GAP 13.6 mmol/L (5-15); ASPARTATE AMNIOTRANSFERASE,AST 22 U/L (15-37); BILIRUBIN TOTAL 0.7 mg/dL (0.2-1.0); BLOOD UREA NITROGEN,BUN 7 mg/dL (7-18); CALCIUM 8.4 mg/dL (8.5-10.1); CARBON DIOXIDE,CO2 26 mmol/L (21-32); CHLORIDE,CL 107 mmol/L (98-107); CREATININE 0.8 mg/dL (0.55-1.02); ESTIMATED GFR 104 mL/min (>=60); GLUCOSE RANDOM 91 mg/dL (70-99); LIPASE 31 U/L (19-71); POTASSIUM,K 3.6 mmol/L (3.5-5.1); PROTEIN TOTAL,TP 6.8 g/dL (6.4-8.2); SODIUM,NA 143 mmol/L (136-145)
[2023-05-12 11:45] LABS: C-REACTIVE PROTEIN < 0.50 mg/dL (<=0.50)
== END 2023-05-12 12:13 | disposition home or self-care (01) ==
LOC: VM.ED 10:55
DX: K52.9 Noninfective gastroenteritis and colitis, unspecified (principal); Z90.49 Acquired absence of other specified parts of digestive tract; Z79.899 Other long term (current) drug therapy; Z88.5 Allergy status to narcotic agent
CPT/HCPCS: 80053; 81001; 83690; 85025; 86140; 87086; 96361; 96374; 99284; J2405; J7030